=== PATIENT | female | born 1945 | race Caucasian/White ===

== ENCOUNTER 2016-09-22 16:41 | Observation (INO) | payer OTHER ==
--- NOTE | 2016-09-22 17:36 | PROVIDER DOCUMENTATION ---
Addendum entered and electronically signed by Sagar Ingram Scribe 09/22/16 18:35 : Progress - PLAN OF CARE/RESULTS Progress/Plan/Lab Results: Laboratory Tests 09/22/16 09/22/16 09/22/16 17:33 17:33 17:33 WBC 4.06 L RBC 4.78 Hgb 13.5 Hct 40.3 MCV 84.3 MCH 28.2 MCHC 33.5 RDW Std Deviation 12.8 Plt Count 260 MPV 10.0 Immature Gran % (Auto) 0.0 Neut % (Auto) 57.7 Lymph % (Auto) 29.3 Mcleod % (Auto) 8.1 Eos % (Auto) 3.4 Baso % (Auto) 1.5 H Immature Gran # (Auto) 0.00 Neut # (Auto) 2.34 Lymph # (Auto) 1.19 L Mcleod # (Auto) 0.33 Eos # (Auto) 0.14 Baso # (Auto) 0.06 PT INR Sodium 142 Potassium 3.6 Chloride 104 Carbon Dioxide 26 Anion Gap 13 BUN 14 Creatinine 1.0 H Estimated GFR/1.73 m2 54 BUN/Creatinine Ratio 14 Glucose 172 H Calculated Osmolality 288 Calcium 9.9 Total Bilirubin 0.60 AST 18 ALT 17 Alkaline Phosphatase 82 Creatine Kinase 109 Troponin T < 0.010 Total Protein 6.1 L Albumin 4.1 Globulin 2.0 Albumin/Globulin Ratio 2.0 09/22/16 17:33 WBC RBC Hgb Hct MCV MCH MCHC RDW Std Deviation Plt Count MPV Immature Gran % (Auto) Neut % (Auto) Lymph % (Auto) Mcleod % (Auto) Eos % (Auto) Baso % (Auto) Immature Gran # (Auto) Neut # (Auto) Lymph # (Auto) Mcleod # (Auto) Eos # (Auto) Baso # (Auto) PT 13.4 INR 0.99 Sodium Potassium Chloride Carbon Dioxide Anion Gap BUN Creatinine Estimated GFR/1.73 m2 BUN/Creatinine Ratio Glucose Calculated Osmolality Calcium Total Bilirubin AST ALT Alkaline Phosphatase Creatine Kinase Troponin T Total Protein Albumin Globulin Albumin/Globulin Ratio Orders Category Date Time Status HEAD W/O CONTRAST [CT] Stat Exams 09/22/16 17:10 Taken CBC WITH DIFF [HEME] Stat Lab 09/22/16 17:33 Completed CK PROFILE [SP CHEM] Stat Lab 09/22/16 17:33 Completed COMPREHENSIVE METABOLIC PANEL [CHEM] Stat Lab 09/22/16 17:33 Completed PROTIME WITH INR PL [COAG] Stat Lab 09/22/16 17:33 Completed TROPONIN T Stat Lab 09/22/16 17:33 Completed EKG [EKG] Stat Ther 09/22/16 17:10 Ordered Vital Signs - 24 hr 09/22/16 17:03 Temperature 98 F Pulse Rate 74 Respiratory 18 Rate Blood Pressure 204/109 O2 Sat by Pulse 99 Oximetry Original Note: HPI-Neurological Disorder - General Source: patient - History of Present Illness-Neuro Severity: reports: mild, moderate Onset/Duration: reports: other (apon awakening) Timing: reports: still present, constant Context: reports: paresthesia. denies: head injury, impaired speech, facial droop Character of Altered Mental Status: reports: N/A Character of Deficits: reports: new weakness New weakness or altered sensation location:: reports: LUE Cognitive Baseline: alert, oriented x3 Gait Baseline: walks without assistance Associated Symptoms: reports: decreased ability to walk or stand, paresthesia, weakness. denies: headache, fainting, fever/chills, numbness in legs/feet, seizures, slurred speech, tingling in legs/feet, vomiting, vision changes Similar Symptoms Previously?: No Recently seen or treated by another doctor?: No <Truman Carpenter - Last Filed: 09/22/16 17:32> <Micah Basurto - Last Filed: 09/22/16 17:55> <Dami Daly - Last Filed: 09/22/16 18:31> <Sagar Ingram - Last Filed: 09/22/16 18:33> - General Chief Complaint: Weakness Stated Complaint: WEAKNESS Time Seen by Provider: 09/22/16 17:32 Allergies/Adverse Reactions: Patient Allergies Allergy/AdvReac Type Severity Reaction Status Date / Time No Known Allergies Allergy Verified 09/22/16 17:07 Home Medications: Home Medication List Medication Instructions Recorded Confirmed Last Taken Type Home Meds Unobtainable 09/22/16 09/22/16 Unknown History - History of Present Illness-Neuro Nature of Presenting Problem: patient is a 71 y/o F that presents to the ER with left sided weakness that she noticed this am when she woke up, She had some weakness last night. Reports over the past year being off balance and falling alot. Denies chest pain, fever , or injury. (Truman Carpenter) Review of Systems - Adult - REVIEW OF SYSTEMS - ADULT Constitutional: denies: chills, fever Eyes: denies: decreased vision, blurred vision, double vision Ears, Nose, Mouth & Throat: denies: ear pain, sinus problem, throat pain, throat swelling Cardiovascular: denies: chest pain, palpitations, syncope Respiratory: denies: cough, shortness of breath, wheezing Gastrointestinal: denies: abdominal pain, nausea, vomiting Genitourinary: reports: no symptoms reported Musculoskeletal: denies: back pain, joint pain, neck pain Integumentary: reports: no symptoms reported Neurological: reports: loss of balance, paresthesia. denies: dizziness/vertigo , headache/migraines, numbness, seizure, slurred speech, syncope, tremors Psychiatric: reports: no symptoms reported Endocrine: reports: no symptoms reported Hematologic/Lymphatic: reports: no symptoms reported Allergic/Immunologic: reports: no symptoms reported All Other Systems: Reviewed and Negative <Truman Carpenter - Last Filed: 09/22/16 17:32> Past History - Adult - PAST MEDICAL HISTORY-ADULT Review of Records: reports: Old Records Reviewed, Nursing Assessment Review, Medications Reviewed Cardiovascular: reports: HTN Endocrine/Immune: reports: Diabetes - PRIOR SURGERIES/PROCEDURES Surgical/Procedure History: reports: cholecystectomy - IMMUNIZATION STATUS Childhood Immunizations: See Nurse Assessment Flu Vaccine: See Nurse Assessment - FAMILY HISTORY Family History: reviewed, not pertinent - SOCIAL HISTORY Smoking: non-smoker Living Situation: family <Truman Carpenter - Last Filed: 09/22/16 17:32> Physical Exam- Neurological - Physical Exam-Neuro Initial Vital Signs Reviewed: Yes General Appearance: alert, no apparent distress Eye Exam: bilateral eye: normal inspection, PERRL HENMT: normocephalic/atraumatic, moist mucous membranes, normal ENT inspection Head Injury: no evidence of injury. 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 negative: aphasia, EOM palsy, facial droop Integumentary: normal color, normal turgor, warm/dry Psych/Mental Status: normal mood/affect, normal thought content, normal thought process, oriented x 3 - Glascow Coma Scale Best Eye Response: (4) open spontaneously Best Verbal Response: (5) oriented Best Motor Response: (6) obeys commands Total Glascow Score: 15 <Truman Carpenter - Last Filed: 09/22/16 17:32> Progress <Truman Carpenter - Last Filed: 09/22/16 17:32> - CHANGE OF SHIFT REPORT (ED Provider) Report Given and Care Transferred to:: Time of Transfer: 18:00 Items Pending: Labs, CT/MRI Results <Micah Basurto - Last Filed: 09/22/16 17:55> <Dami Daly - Last Filed: 09/22/16 18:31> - CT/MRI 1 CT Study: Head CT Results: disproportionate cerebellar atrophy and hydrocephalus. no bleed or mass eff <Sagar Ingram - Last Filed: 09/22/16 18:33> - PLAN OF CARE/RESULTS Progress/Plan/Lab Results: plan of care-cva work up (Truman Carpenter) Departure <Truman Carpenter - Last Filed: 09/22/16 17:32> <Micah Basurto - Last Filed: 09/22/16 17:55> - Departure Time of Disposition Order: 06:30 Certified Medical Emergency: Emergent <Dami Daly - Last Filed: 09/22/16 18:31> <Sagar Ingram - Last Filed: 09/22/16 18:33> - Departure DIAGNOSIS: Left-sided weakness, Hydrocephalus Disposition: ADMITTED INPATIENT 09 Condition: Stable Referrals: None,PCP [Primary Care Provider] - Attestation - Scribe Verification/Attestation Scribe:: Truman Carpenter Acting as Scribe for:: Micah Basurto Scribe documention review:: This chart was documented by a scribe and accurately reflects the service the provider performed and the decisions made by the provider. <Truman Carpenter - Last Filed: 09/22/16 17:32> Physician Attestation - Physician Attestation I, the provider, attest to the following statement:: Micah Basurto Physician documentation Attestation:: This documentation recorded by the scribe accurately reflects the service I personally performed and the decisions made by me. <Truman Carpenter - Last Filed: 09/22/16 17:32>
[2016-09-22 17:47] LABS: MANUAL DIFF NEEDED? NO
[2016-09-22 17:50] LABS: BASO% 1.5 % (0.0-0.8); EOS# 0.14 X1000 (0.0-0.7); EOS% 3.4 % (0.0-10.0); HEMATOCRIT 40.3 % (37.0-47.0); HEMOGLOBIN 13.5 g/dL (12.0-16.0); LYMPH# 1.19 X1000 (1.2-3.4); LYMPH% 29.3 % (20.5-51.1); MCH 28.2 PG (27-31); MCHC 33.5 g/dL (33-37); MCV 84.3 FL (81-99); MONO# 0.33 X1000 (0.11-0.59); MONO% 8.1 % (1.7-9.3); NEUT% 57.7 % (42.2-75.2); PLT 260 X1000 (130-400); RBC 4.78 XMIL (4.2-5.4)
[2016-09-22 18:04] LABS: INR 0.99 (0.86-1.15); PROTIME 13.4 Seconds (12.1-15.5)
[2016-09-22 18:09] LABS: ALBUMIN 4.1 g/dL (3.5-5.0); CALCIUM 9.9 mg/dL (8.8-10.2); POTASSIUM 3.6 mmol/L (3.5-5.1); TOTAL BILIRUBIN 0.6 mg/dL (0.20-1.00); TOTAL PROTEIN 6.1 g/dL (6.3-8.3)
[2016-09-22] MEDS ORDERED: APRESOLINE IV PRN (21:00)
[2016-09-22] MEDS ORDERED: TYLENOL PO PRN (21:01)
[2016-09-22] MEDS ORDERED: ZOFRAN IV PRN (21:01)
[2016-09-22] MEDS ORDERED: PROTONIX IV SCH (21:15)
[2016-09-22] MEDS ORDERED: SODIUM CHLORIDE 0.9% INJ SCH (21:15)
[2016-09-23 06:01] LABS: HEMATOCRIT 38.9 % (37.0-47.0); MCH 28.2 PG (27-31); MCHC 33.4 g/dL (33-37); MCV 84.4 FL (81-99); MPV 10.2 FL (7.4-10.4); RBC 4.61 XMIL (4.2-5.4)
[2016-09-23 08:53] LABS: AGAP 15; ALBUMIN 3.8 g/dL (3.5-5.0); ALKALINE PHOSPHATASE 70 U/L (32-104); BUN 15 mg/dL (8-22); CALCIUM 9.5 mg/dL (8.8-10.2); CHLORIDE 102 mmol/L (98-107); COSMO 287; GOT 24 U/L (10-30); GPT 14 U/L (10-36); HDL 39 mg/dL (45-65); LDL 126 mg/dL; POTASSIUM 3.8 mmol/L (3.5-5.1); SODIUM 142 mmol/L (136-145); TCO2 25 mmol/L (25-35); TOTAL PROTEIN 6.3 g/dL (6.3-8.3); TRIGLYCERIDES 95 mg/dL (35-135); VLDL 19 mg/dL
[2016-09-23] MEDS ORDERED: HYDROCHLOROTHIAZIDE PO SCH (09:00)
[2016-09-23] MEDS ORDERED: PRINIVIL PO SCH (09:00)
--- NOTE | 2016-09-23 09:55 | Diag Imaging Result Document ---
PROCEDURE NAME: HEAD W/O CONTRAST - 09/22/2016 CT OF THE HEAD WITHOUT CONTRAST: FINDINGS: There are calcifications in the internal carotid arteries bilaterally. There is ventriculomegaly which appears somewhat out of proportion to the degree of cerebral atrophy. There is a lacune in the thalamus on the left measuring less than 5 mm in diameter. There is cerebellar atrophy which is also out of proportion to the degree of cerebral atrophy. There are no previous studies. The visualized paranasal sinuses are clear. There is no evidence of acute calvarial abnormality. IMPRESSION: Cerebellar atrophy and ventriculomegaly as described. Advise comparison with previous studies if available.
[2016-09-23 11:33] VITALS: BP 164/74
--- NOTE | 2016-09-23 12:07 | HISTORY AND PHYSICAL ---
CHIEF COMPLAINT: Weakness. SUBJECTIVE: Patient is a 71-year-old female who presented to [facility] noting that she has been falling off and on for the past 6 months or longer. This time however she was noting some left-sided weakness that was new. She also notes that she has been having confusion off and on for the last year. She denies any current headaches, fevers, chills. Denies any current slurred speech. Denies any tingling in her upper or lower extremities. Denies any weakness in her lower extremities. She states most of the symptoms have resolved at this point. ALLERGIES: No known drug allergies. MEDICATIONS: Patient is uncertain of her home medications. However, she knows that she takes lisinopril HCT, a blood pressure medicine that starts with "M," presumably metoprolol. REVIEW OF SYSTEMS: Denies any fevers, chills, cough, congestion. Denies any blurred vision, change in vision. Denies any headaches. Denies any current focalized numbness or tingling. Notes that she is still having weakness of her left upper extremity, but the tingling in her left upper and lower extremity have resolved. Denies any dysuria, frequency or urgency. Denies hesitancy, polyuria, polydipsia. Denies skin rashes, weight loss or weight gain. PAST MEDICAL HISTORY: Hypertension, diabetes. PAST SURGICAL HISTORY: Cholecystectomy. FAMILY HISTORY: Noncontributory. SOCIAL HISTORY: Patient lives at home. Her primary care physician, Dr. Lofton, has retired. She does not smoke or drink. OBJECTIVE: Vital Signs Reviewed: Temperature 97.5 degrees, pulse 80, respiratory 204/109 initially and currently 151/66, satting 100% on room air. General: Patient is well developed, well nourished. Currently in no real respiratory distress. She is awake, alert, oriented. Neck: Supple. CV: Regular rate. Chest: Relatively clear. Abdomen: Soft. 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 She is awake, alert, oriented. Skin: No rashes. LABS: CBC and CMP essentially normal. X-RAYS: CT head demonstrates disproportionate cerebellar atrophy and mild hydrocephalus. No bleeding. No mass effect. ASSESSMENT: 1. Acute cerebrovascular accident with left-sided weakness. 2. Hypertension with malignant hypertension. 3. Diabetes. 4. 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 PLAN: We will admit patient to the hospital overnight for observation, physical therapy, place her on telemetry. Will check labs in the a.m. Echo and carotid. Further orders as needed.
--- NOTE | 2016-09-23 13:40 | DISCHARGE SUMMARY ---
ADMISSION DATE: 09/22/2016 DISCHARGE DATE: 09/23/2016 DISCHARGE DIAGNOSES: 1. Hypertension. Patient's blood pressure was elevated. Increased her lisinopril to 40/25. 2. Diabetes. Continue home medications. 3. Acute cerebrovascular accident. 4. Others. CONSULTATIONS: None. PROCEDURES: Echo carotid verbally reported as normal. BRIEF HOSPITAL COURSE: Patient is an 81-year-old female who was admitted as on the [facility] and treated in the usual fashion. Her weakness almost completely resolved. She is having no acute delirium or confusion. She was started on Lipitor while in the hospital and a baby aspirin. Her blood pressure medicine was increased on discharge. She is in no distress and is asking to go home. DISPOSITION: The patient will be discharged home. She will follow up outpatient with primary care of her choice. Discussed with patient that she needs to continue physical activity and physical therapy as an outpatient. We will continue current medications with the addition of Lipitor.
[2016-09-23] MEDS ORDERED: LIPITOR PO SCH (21:00)
--- NOTE | 2016-09-26 07:07 | Extremity Venous Study ---
PROCEDURE NAME: Carotid Ultrasound - 09/23/2016 CAROTID DOPPLER ULTRASOUND: FINDINGS: There is no appreciable intimal thickening or atheromatous plaque formation present. There is slightly elevated peak systolic velocity in the mid left internal carotid artery to 149 cm/sec. This may be over estimated due to tortuosity of the vessel, however. Otherwise, there is no evidence of significant stenosis by velocity criteria and there is antegrade flow in both vertebral arteries. Estimated stenosis on the left is at most 59%. IMPRESSION: No significant stenosis.
--- NOTE | 2016-09-26 16:55 | ECHO REPORT ---
ORDER DATE: 09/23/2016 INDICATION: CVA. FINDINGS: 1. Right atrium is normal in size at 3.3 cm. 2. Trace tricuspid regurgitation. RV systolic pressure of 26. 3. Normal RV size and systolic function. 4. Trace pulmonic insufficiency. 5. Normal left atrial size at 3.6 cm. 6. No mitral valve prolapse. Mild mitral regurgitation. 7. Normal LV size, end-diastolic dimension of 3.6. There is mild bordering on moderate left ventricular hypertrophy with a posterior and interventricular septal thickness 1.4 cm each. Normal LV systolic function. Calculated EF 54%. 8. Aortic valve opens well and appears trileaflet. There is no evidence of stenosis or insufficiency. 9. Aorta appears normal in visualized segments. 10. There is no pericardial effusion identified on this study.
== END 2016-09-23 18:55 | disposition home or self-care (01) ==
LOC: P.ED 16:41 → P.MEDSURG 19:48
PROVIDERS: ATTEND Internal Medicine
DX: I63.9 Cerebral infarction, unspecified (principal); G81.94 Hemiplegia, unspecified affecting left nondominant side; R53.1 Weakness; R20.9 Unspecified disturbances of skin sensation; R42 Dizziness and giddiness; I10 Essential (primary) hypertension; E11.9 Type 2 diabetes mellitus without complications; G91.9 Hydrocephalus, unspecified; Z91.81 History of falling; F03.90 Unspecified dementia, unspecified severity, without behavioral disturbance, psychotic disturbance, mood disturbance, and anxiety
CPT/HCPCS: 36415; 70450; 80053; 80061; 82550; 82948; 84484; 85025; 85027; 85610; 93005; 93306; 93880; C9113; S0164